=== PATIENT | female | born 1950 ===

== ENCOUNTER 2019-01-16 07:24 | Emergency (ER) | payer BC, MEDICARE ==
[2019-01-16 07:25] VITALS: BMI 25.1
[2019-01-16 07:41] VITALS: RESP 18; TEMP 98.2; O2SAT 100
[2019-01-16] MEDS ORDERED: Sodium Chloride 0.9% 1,000 ML IV SCH (07:45)
--- NOTE | 2019-01-16 07:47 | ED PDOC ---
Arrival/HPI - General Chief Complaint: Dizziness/Lightheaded Time Seen by Provider: 01/16/19 07:28 Historian: Patient, Family (daughter) - History of Present Illness Narrative History of Present Illness (Text): 01/16/19 07:45 A 68 year old female, whose past medical history includes atrial fibrillation, hypertension, and hyperlipidemia, presents to the emergency department accompanied by family complaining of dizziness and weakness since this morning. Patient reports experiencing associated nausea, diaphoresis, and left leg pain. Patient states she woke up this morning and and immediately felt too weak to get up from bed. Patient states she passed out and does not remember exactly what happened. Patient denies any current pain or recent travel. Patient notes this has never happened before and also notes she has not eaten yet today. Per daughter, Patient helped her yesterday get up and received a cut to her left leg in the process. Patient notes she is taking medication for her hypertension and hyperlipidemia. Patient denies any fever, chills, shortness of breath, chest pain, diarrhea, vomiting, urinary symptoms, back pain, neck pain, headache, or any other complaints. PMD: Dr. Cordero Time/Duration: 1-3 hours Symptom Onset: Sudden Symptom Course: Unchanged Activities at Onset: Light Context: Home Past Medical History - Provider Review Nursing Documentation Reviewed: Yes - Reproductive Menopause: Yes - Cardiac Hx Atrial Fibrillation: Yes Hx Hypertension: Yes - Musculoskeletal/Rheumatological Hx Musculoskeletal Disorders: (ARTHRITIS) Hx Falls: No - Psychiatric Hx Depression: No Hx Emotional Abuse: No Hx Physical Abuse: No Hx Substance Use: No - Anesthesia Hx Anesthesia: Yes - Suicidal Assessment Feels Threatened In Home Enviroment: No Family/Social History - Physician Review Nursing Documentation Reviewed: Yes Family/Social History: No Known Family HX Smoking Status: Never Smoked Hx Alcohol Use: Yes (SOCIALLY) Amount per day: 1 Hx Substance Use: No Hx Substance Use Treatment: No Allergies/Home Meds Allergies/Adverse Reactions: Allergies No Known Allergies Allergy (Verified 01/16/19 07:26) Home Medications: Home Meds Medication Instructions Recorded Confirmed Atorvastatin [Lipitor] 20 mg PO DAILY 01/16/19 01/16/19 Cetirizine HCl [Children's 40 mg PO QPM 01/16/19 01/16/19 Cetirizine HCl] Fexofenadine HCl [Allergy Relief] 180 mg PO DAILY 01/16/19 01/16/19 Metoprolol Tartrate [Lopressor] 25 mg PO BID 01/16/19 01/16/19 Review of Systems - Physician Review All systems were reviewed & negative as marked: Yes - Review of Systems Constitutional: absent: Fevers, Other (chills) Respiratory: absent: SOB Cardiovascular: absent: Chest Pain Gastrointestinal: Nausea. absent: Diarrhea, Vomiting Genitourinary Female: absent: Urine Output Changes Musculoskeletal: Other (left leg pain). absent: Back Pain, Neck Pain Neurological: Dizziness, Other (weakness) Endocrine: Diaphoresis Physical Exam Vital Signs Reviewed: Yes Vital Signs Temp Pulse Resp BP Pulse Ox 01/16/19 07:34 98.2 F 68 18 131/62 100 Temperature: Afebrile Blood Pressure: Normal Pulse: Regular Respiratory Rate: Normal Appearance: Positive for: Well-Appearing, Non-Toxic Mental Status: Positive for: Alert and Oriented X 3 Finger Stick Blood Glucose: 139 - Systems Exam Head: Present: Atraumatic, Normocephalic Pupils: Present: PERRL Extroacular Muscles: Present: EOMI Conjunctiva: Present: Normal Respiratory/Chest: Present: Clear to Auscultation, Good Air Exchange. No: Respiratory Distress, Accessory Muscle Use Cardiovascular: Present: Regular Rate and Rhythm, Normal S1, S2. No: Murmurs Abdomen: No: Tenderness, Distention, Peritoneal Signs Back: Present: Normal Inspection Upper Extremity: Present: Normal Inspection. No: Cyanosis, Edema Lower Extremity: No: Edema Neurological: Present: GCS=15, CN II-XII Intact, Speech Normal Skin: Present: Warm, Dry, Normal Color, Abrasion (superficial abrasion to anterior aaspect of left lower leg). No: Rashes Psychiatric: Present: Alert, Oriented x 3, Normal Insight, Normal Concentration Medical Decision Making ED Course and Treatment: 01/16/19 07:45 Impression: 68 year old female presenting to the emergency room complaining of dizziness and weakness. Plan: -- Head CT without contrast -- EKG -- Labs -- CBC -- Chest X-ray -- Antivert -- Zofran -- IV fluids -- Urine culture -- Ultrasound of left lower extremity -- Reassess and disposition Prior Visits: Notes and results from previous visits were reviewed. Progress Notes: 01/16/19 07:45 EKG: Ordered, reviewed, and independently interpreted the EKG. Rate : 62 BPM Rhythm : NSR Interpretation : Normal axias, nromal intervals. 01/16/19 09:09 Procedure: Head CT Dictator: Clif Aguila Impression: No acute intracranial pathology. 01/16/19 10:54 Procedure: Chest X-ray Dictator: Clif Aguila Impression: No active disease. 01/16/19 10:56 Patient was administered a posterior splint on left ankle. Good cap refill noted after splint was placed. Patient will follow up with Dr. Carr as per Dr. Cordero. - Scribe Statement The provider has reviewed the documentation as recorded by the Paramjitibviola Singleton All medical record entries made by the Scribe were at my direction and personally dictated by me. I have reviewed the chart and agree that the record accurately reflects my personal performance of the history, physical exam, medical decision making, and the department course for this patient. I have also personally directed, reviewed, and agree with the discharge instructions and disposition. Disposition/Present on Arrival - Present on Arrival Any Indicators Present on Arrival: No History of DVT/PE: No History of Uncontrolled Diabetes: No Urinary Catheter: No History of Decub. Ulcer: No History Surgical Site Infection Following: None - Disposition Have Diagnosis and Disposition been Completed?: Yes Diagnosis: Ankle fracture, Vasovagal episode Disposition: HOME/ ROUTINE Disposition Time: 10:30 Condition: GOOD Discharge Instructions (ExitCare): Ankle Fracture (DC), Vasovagal Response (DC) Additional Instructions: HANNAH MENDEZ, thank you for letting us take care of you today. The emergency medical care you received today was directed at your acute symptoms. If you were prescribed any medication, please fill it and take as directed. It may take several days for your symptoms to resolve. Return to the Emergency Department if your symptoms worsen, do not improve, or if you have any other problems. Please contact your doctor or call one of the physicians/clinics you have been referred to that are listed on the Patient Visit Information form that is included in your discharge packet. Bring any paperwork you were given at discharge with you along with any medications you are taking to your follow up visit. Our treatment cannot replace ongoing medical care by a primary care provider outside of the emergency department. Thank you for allowing the [facility] team to be part of your care today. Try not to put any weight on your left leg. Follow up with Dr. Carr, the girl friday, early next week for re-evaluation and further management. Prescriptions: Ibuprofen [Motrin] 600 mg PO Q6 PRN #20 tab PRN Reason: Pain, Moderate (4-7) Referrals: Javier Cordero MD [Staff Provider] - Follow up with primary Justina Carr DPM [Staff Provider] - Follow up with primary Forms: [email or web address] (Greenlandic)
[2019-01-16 08:13] LABS: PH,URINE 6.5 (4.7-8.0); URINE APPEARANCE CLEAR (CLEAR); URINE BILIRUBIN NEGATIVE (NEGATIVE); URINE BLOOD NEGATIVE (NEGATIVE); URINE COLOR YELLOW (YELLOW); URINE GLUCOSE (UA) NEGATIVE (NEGATIVE); URINE LEUKOCYTE ESTERASE NEGATIVE Leu/uL (NEGATIVE); URINE PROTEIN NEGATIVE mg/dL (<30 mg/dL); URINE UROBILINOGEN 0.2 E.U./dL (<1 E.U./dL)
[2019-01-16 08:17] LABS: BASO # 0.01 K/mm3 (0.0-2.0); BASO % 0.2 % (0.0-3.0); EOS % 0.8 % (1.5-5.0); HEMOGLOBIN 12.3 g/dL (12.0-16.0); LYMPH # 1.2 (1.2-3.4); LYMPH % 25.4 % (22.0-35.0); MEAN CELL VOLUME 93.5 fl (80.0-105.0); MEAN CORPUSCULAR HEMOGLOBIN 29.6 pg (25.0-35.0); MEAN CORPUSCULAR HGB CONC 31.6 g/dl (31.0-37.0); MEAN PLATELET VOLUME 9.9 fl (7.0-11.0); MONO # 0.3 (0.1-0.6); MONO % 5.9 % (1.0-6.0); RBC 4.16 10^6/uL (3.5-6.1); RED CELL DISTRIBUTION WIDTH 13.6 % (11.5-14.5); WHITE BLOOD COUNT 4.8 10^3/uL (4.5-11.0)
[2019-01-16 08:22] LABS: ALB/GLOB RATIO 1.4 (1.1-1.8); ALBUMIN 4.1 g/dL (3.0-4.8); ALT/SGPT 45 U/L (7-56); AST/SGOT 39 U/L (14-36); BLOOD UREA NITROGEN 16 mg/dL (7-21); CALCIUM 8.7 mg/dL (8.4-10.5); GFR NON-AFRICAN AMERICAN > 60
[2019-01-16 08:32] LABS: TROPONIN I < 0.01 ng/mL
--- NOTE | 2019-01-16 09:02 | CT ---
Date of service: 01/16/2019 PROCEDURE: CT HEAD WITHOUT CONTRAST. HISTORY: dizziness/syncope COMPARISON: None available. TECHNIQUE: Axial computed tomography images were obtained through the head/brain without intravenous contrast. Radiation dose: Total exam DLP = 894.13 mGy-cm. This CT exam was performed using one or more of the following dose reduction techniques: Automated exposure control, adjustment of the mA and/or kV according to patient size, and/or use of iterative reconstruction technique. FINDINGS: HEMORRHAGE: No intracranial hemorrhage. BRAIN: No mass effect or edema. No atrophy or chronic microvascular ischemic changes. VENTRICLES: Unremarkable. No hydrocephalus. CALVARIUM: Unremarkable. PARANASAL SINUSES: Unremarkable as visualized. No significant inflammatory changes. MASTOID AIR CELLS: Unremarkable as visualized. No inflammatory changes. OTHER FINDINGS: None. IMPRESSION: No acute intracranial pathology.
[2019-01-16 10:32] VITALS: BP 121/78; PULSE 69
--- NOTE | 2019-01-16 10:33 | RAD ---
Date of service: 01/16/2019 PROCEDURE: Left Ankle Radiographs. HISTORY: left ankle pain swelling COMPARISON: None available. TECHNIQUE: 3 views obtained. FINDINGS: BONES: Minimally displaced fracture of the lateral calcaneal process. Intra-articular avulsion fracture of the dorsal navicular. JOINTS: Ankle mortise maintained. Talar dome intact SOFT TISSUES: Lateral malleolar soft tissue swelling. OTHER FINDINGS: Ankle joint effusion. IMPRESSION: Minimally displaced fractures of the lateral process of the calcaneus as well as intra-articular avulsion fracture of the dorsal navicular.
--- NOTE | 2019-01-16 10:34 | RAD ---
Date of service: 01/16/2019 HISTORY: r/o infiltrate COMPARISON: Chest radiograph dated 08/11/2013. TECHNIQUE: 1 view obtained. FINDINGS: LUNGS: No active pulmonary disease. PLEURA: No significant pleural effusion identified, no pneumothorax apparent. CARDIOVASCULAR: Aortic atherosclerotic calcifications. Cardiomediastinal silhouette stably enlarged. OSSEOUS STRUCTURES: Unchanged. VISUALIZED UPPER ABDOMEN: Epigastric and left upper quadrant region surgical clips. OTHER FINDINGS: None. IMPRESSION: No active disease.
[2019-01-16] MEDS ORDERED: Bacitracin 500 Units/gm Oint Foilpak UD ONE (11:27)
--- NOTE | 2019-01-16 12:13 | US ---
PROCEDURE: Left lower extremity venous US HISTORY: Leg pain and swelling. Evaluate for DVT. PHYSICIAN(S): Sukhi Galo MD. TECHNIQUE: Duplex sonography and color-flow Doppler with graded compression were used to evaluate the deep venous system of the left lower extremity. FINDINGS: The visualized deep venous system of the left lower extremity is sonographically normal and compressible. Normal wave forms and augmentation are seen. There is no sonographic evidence for deep venous thrombosis in the visualized segments of the left lower extremity. IMPRESSION: 1. No sonographic evidence for deep venous thrombosis in the visualized segments of the left lower extremity.
--- NOTE | 2019-01-17 10:50 | CARD ---
APPROVED REPORT Date of service: 01/16/2019 EKG Measurement Heart [id number] <Conclusion> Normal sinus rhythm Normal ECG
== END 2019-01-16 11:37 | disposition home or self-care (01) ==
LOC: ED 07:24
DX: S82.892A Other fracture of left lower leg, initial encounter for closed fracture (principal); X58.XXXA Exposure to other specified factors, initial encounter; R55 Syncope and collapse; I48.91 Unspecified atrial fibrillation; I10 Essential (primary) hypertension; E78.5 Hyperlipidemia, unspecified; M19.90 Unspecified osteoarthritis, unspecified site
CPT/HCPCS: 29515; 70450; 71045; 73610; 80053; 81003; 82550; 83615; 83735; 84484; 85025; 87086; 93005; 93971; 96374; 99285; J2405; J7030

== ENCOUNTER 2019-01-20 14:43 | Outpatient (CLI) | payer MEDICARE | END 2019-01-20 14:44 | disposition home or self-care (01) | LOC: RAD 14:44 ==